=== PATIENT | female | born 1960 | race Hispanic/Latino ===

== ENCOUNTER → 2021-06-13 | Outpatient (CLI) | payer BC, OTHER | END | disposition home or self-care (01) | LOC: ICE 11:28 | PROVIDERS: ATTEND Internal Medicine Cardiovascular Disease | DX: Z20.822 Contact with and (suspected) exposure to COVID-19 (principal) | CPT/HCPCS: 87426; 87635; C9803 ==

== ENCOUNTER → 2022-03-29 | Outpatient (CLI) | payer BC, OTHER | END | disposition home or self-care (01) | LOC: RAH 13:23 | PROVIDERS: ATTEND Family Medicine | DX: E11.9 Type 2 diabetes mellitus without complications (principal); I35.1 Nonrheumatic aortic (valve) insufficiency | CPT/HCPCS: 93306 ==

== ENCOUNTER → 2023-06-13 | Outpatient (CLI) | payer OTHER | END | disposition home or self-care (01) | LOC: OIH 08:49 | PROVIDERS: ATTEND Internal Medicine | DX: Z13.6 Encounter for screening for cardiovascular disorders (principal) | CPT/HCPCS: 75571 ==

== ENCOUNTER → 2024-09-06 | Outpatient (CLI) | payer BC ==
--- NOTE | 2024-09-09 10:39 | HMCSR ---
APPROVED REPORT EXAM: Two-dimensional and M-mode echocardiogram with Doppler and color Doppler. INDICATION ICD: I49.0 2D Dimensions RVDd2.6 cmLVEF(%)70.1 (>50%)LVED Vol(simp.)82.0 mL IVSd1.0 (0.7-1.1cm)FS(%)39 %LVES Vol(simp.)34.0 mL LVDd4.4 (3.8-5.6cm)Ao Root(2D)3.3 (2.0-3.7cm)LVEF(%, simp.)58 % PWd1.0 (0.7-1.1cm)LVOT diam1.9 (1.8-2.4cm)LA ESV INDEX (BP)31.41 mL/m2 LVDs2.7 (2.5-4.0cm)IVC diam1.3 cm Aortic Valve AoV Vmax2.6 m/Tereza Peak GR27.6 mmHgLVOT Vmax1.5 m/s AoV VTI0.5 mAo Mean GR16.2 mmHgLVOT VTI0.33 m TORREY (VMAX)1.72 cm2Al P1/2T551 msAVA (VTI) 1.7 cm2 Mitral Valve MV E Nzau757.8 cm/sDECEL Rect716 msMV Peak GR11 mmHg MV A Wspf713.2 cm/sP 1/2 T91 msMV Mean GR3 mmHg E/A ratio0.8MVA (PHT)2.4 cm2MVA (VTI)1.99 cm2 MR Max PG59 mmHg TDI E/E' Tlgmsv99.3E/E' Mpgwovv15.3 Lateral E' Peak V4.61 cm/s Pulmonary Valve PV Vmax1.1 m/sPV VTI0.25 mPV Mean GR3.0 mmHg PV Peak GR5.2 mmHgPI End Maci. Daniel 1.1 cm/s Tricuspid Valve TR Vmax2.2 m/sRAP (EST) 3 ejDgDEUK81.0 mmHg TR Peak GR19.0 mmHg Left Ventricle Left ventricular cavity size is normal. There is borderline left ventricular hypertrophy. LVEF is 55- 60%. Grade II diastolic dysfunction. Right Ventricle The right ventricle is normal size. The right ventricular systolic function is normal. Atria The left atrium size is normal. The right atrium size is normal. Aortic Valve Aortic valve is trileaflet. Moderate aortic regurgitation. Aortic valve sclerosis without stenosis. C alculated aortic valve area is 1.7 cm2 with maximum pressure gradient of 27.7 mmHg and mean pressure gradient of 16.2 mmHg. Mitral Valve The mitral valve is mildly thickened. Mitral annular calcification is mild. Mitral regurgitation is t race. Calculated mitral valve area is 2.0 cm2 with maximum pressure gradient of 11.3 mmHg and mean pr essure gradient of 3.4 mmHg. Tricuspid Valve The tricuspid valve leaflets appear normal. There is trace tricuspid regurgitation. Pulmonic Valve The pulmonic valve leaflets are thin and pliable; valve motion is normal. There is mild pulmonic valv ular regurgitation. Great Vessels The aortic root is normal in size. The IVC is normal in size and collapses >50% with inspiration. Pericardium No pericardial effusion. Other Information Quality : GoodRhythm : NSR Conclusion LVEF is 55-60%. Grade II diastolic dysfunction. Aortic valve sclerosis without stenosis. Moderate aortic regurgitation. Mild mitral stenosis with MG of 3.4 mmHg and MVA of 2.0 cm2
== END ==
LOC: SHCH 08:49
PROVIDERS: ATTEND Internal Medicine
DX: I08.8 Other rheumatic multiple valve diseases (principal); I49.01 Ventricular fibrillation
CPT/HCPCS: 93306